=== PATIENT | female | born 1955 | race Caucasian/White ===

== ENCOUNTER → 2017-05-18 | Outpatient (CLI) | payer OTHER ==
--- NOTE | 2017-05-18 13:54 | Diagnostic Imaging Report ---
EXAMINATION: Pelvic ultrasound. INDICATION: Abnormal Pap, postmenopausal. COMPARISON: There are no prior studies available for comparison. FINDINGS: The uterus is not enlarged measuring 5.5 x 4.3 x 3.8 cm. However, within the endometrial lining of the uterus, there is a 0.8 x 0.7 x 1.0 cm hyperechoic avascular mass. There is also some fluid about this mass. The endometrium itself does not seem to be abnormally thickened. This hyperechoic lesion could represent a polyp. The possibility that this is neoplastic in nature cannot be entirely excluded. Hysteroscopy would be recommended for further study. There is also a septated predominantly cystic mass in the left adnexa measuring 4.5 x 4.2 x 2.7 cm. Within this cystic area, there is a small roughly 1 cm solid component with some vascularity. I am not certain if the solid component is a portion of the normal left ovary or if this could represent a neoplastic focus. Laparoscopy would be recommended for further evaluation. The right ovary could not be clearly identified. There is no solid pelvic mass visualized, and there is no significant free fluid collection. IMPRESSION: 1. There are two abnormal findings. There is a roughly 1 cm echogenic lesion within the endometrium of the uterus. There is also a septated cyst in the left adnexa with a possible solid component associated with the cyst. Additional evaluation of both these findings would be recommended. If there is no intervention at this time, then a short-term (4-6 week) followup pelvic ultrasound exam should be obtained. 2. There is no acute pelvic abnormality identified. Dictated by: Dictated on workstation # [id number]
== END ==
LOC: RAD 12:50
PROVIDERS: ATTEND Obstetrics & Gynecology
DX: N85.9 Noninflammatory disorder of uterus, unspecified (principal); N83.8 Other noninflammatory disorders of ovary, fallopian tube and broad ligament
CPT/HCPCS: 76830; 76856

== ENCOUNTER 2017-06-11 09:06 | Outpatient (CLI) | payer OTHER ==
[~2017-06-11] VITALS: Ht 162.6 cm; Wt 61.7 kg
[2017-06-11 09:15] VITALS: BP 137/87
[2017-06-11] MEDS ORDERED: CYCL1DRO OU (09:27)
[2017-06-11] MEDS ORDERED: MV-M1TAB38 PO (09:27)
[2017-06-11] MEDS ORDERED: TAMO20TA2 PO (09:27)
[2017-06-11] MEDS ORDERED: CALC-696 PO (09:27)
[2017-06-11] MEDS ORDERED: METO-272 PO (09:27)
[2017-06-11] MEDS ORDERED: ZOLP10TA5 PO (09:27)
[2017-06-11 09:48] LABS: BASOPHILS % (AUTO) 0 % (0-10); EOSINOPHILS # (AUTO) 0.1 10^3/uL (0.0-0.3); EOSINOPHILS % (AUTO) 2 % (0-10); LYMPHOCYTES # (AUTO) 1.4 X 10^3 (1.0-4.0); LYMPHOCYTES % (AUTO) 28 % (12-44); MEAN CORPUSCULAR HEMOGLOBIN 33 PG (25-34); MEAN CORPUSCULAR HGB CONC 33 G/DL (32-36); MEAN CORPUSCULAR VOLUME 98 FL (80-99); MEAN PLATELET VOLUME 9.1 FL (7.4-10.4); MONOCYTES # (AUTO) 0.4 X 10^3 (0.0-1.0); MONOCYTES % (AUTO) 8 % (0-12); NEUTROPHILS % (AUTO) 62 % (42-75); PLATELET COUNT 304 10^3/uL (130-400); RED BLOOD COUNT 4.36 10^6/uL (4.35-5.85); RED CELL DISTRIBUTION WIDTH 13.7 % (10.0-14.5); WHITE BLOOD COUNT 4.9 10^3/uL (4.3-11.0)
== END 2017-06-11 09:45 | disposition home or self-care (01) ==
LOC: PREOP 09:06
PROVIDERS: ATTEND Obstetrics & Gynecology
DX: Z01.812 Encounter for preprocedural laboratory examination (principal); R93.8 Abnormal findings on diagnostic imaging of other specified body structures; N87.9 Dysplasia of cervix uteri, unspecified
CPT/HCPCS: 36415; 85025; 86850; 86900; 86901; 87081

== ENCOUNTER 2017-06-25 06:05 | Day surgery (SDC) | payer OTHER ==
[~2017-06-25] VITALS: Ht 162.6 cm; Wt 61.7 kg
[~2017-06-25 06:05] MED LIST: CALC-696 PO; CYCL1DRO OU; METO-370 PO; MV-M1TAB38 PO; TAMO20TA2 PO; ZOLP10TA5 PO
[2017-06-25] MEDS ORDERED: fentaNYL INJECTION 100 MCG/2 ML AMP ONE ×2 (06:27→08:35)
[2017-06-25] MEDS ORDERED: ROCURONIUM 50 MG/5 ML (ZEMURON) VIAL IV ONE (06:27)
[2017-06-25] MEDS ORDERED: MIDAZOLAM 2 MG/2 ML (VERSED) VIAL ONE (06:27)
[2017-06-25] MEDS ORDERED: SEVOFLURANE (ULTANE) 15 ML INHAL SOLN ONE ×9 (06:27→09:17)
[2017-06-25] MEDS ORDERED: DEXAMETHASONE 10 MG/ML (DECADRON) 1 ML VIAL ONE (06:27)
[2017-06-25] MEDS ORDERED: proPOfol 200 MG/20 ML (DIPRIVAN) VIAL IV ONE (06:27)
[2017-06-25] MEDS ORDERED: LIDOCAINE PF 2% 5 ML (XYLOCAINE) VIAL ONE (06:27)
[2017-06-25] MEDS ORDERED: ONDANSETRON 4 MG/2 ML (SDV) Z0FRAN IV ONE (06:30)
[2017-06-25] MEDS ORDERED: FAMOTIDINE 20MG/2ML IV (PEPCID) IV ONE (06:30)
[2017-06-25] MEDS ORDERED: SCOPOLAMINE 1.5 MG (TRANSDERM-SCOP) PATCH TOP ONE (06:30)
[2017-06-25] MEDS: LACTATED RINGERS 1,000 ML IV PRN ×2 (06:54→07:56)
[2017-06-25] MEDS ORDERED: ceFAZolin 1 GM/NS 50 ML IVPB IV ONE ×2 (07:00)
[2017-06-25] MEDS ORDERED: metroNIDAZOLE 500 MG/100 ML IVPB (PRE-MIX) IV ONE (07:00)
--- NOTE | 2017-06-25 07:11 | Progress Note-Pre Operative ---
Pre-Operative Progress Note H&P Reviewed The H&P was reviewed, patient examined and no changes noted. Date Seen by Provider: Jun 25, 2017 Time Seen by Provider: 06:55 Date H&P Reviewed: Jun 25, 2017 Time H&P Reviewed: 07:00 Pre-Operative Diagnosis: LGSIL, Thickened endometrial stripe, Ovarian cyst DYLAN JANE DO Jun 25, 2017 7:11 am
[2017-06-25 07:19] VITALS: BP 149/90
[2017-06-25] MEDS ORDERED: LACTATED RINGERS 1,000 ML IV ONE (07:51)
[2017-06-25] MEDS ORDERED: GLYCOPYRROLATE 0.2 MG/ML (ROBINUL) 2 ML VIAL ONE ×2 (08:30→09:13)
[2017-06-25] MEDS ORDERED: morphine INJ 10 MG/ML 1ML (SYR OR VIAL) ONE (09:15)
[2017-06-25] MEDS ORDERED: NEOSTIGMINE (BLOXIVERZ ) 1 MG/1ML 10 ML VIAL ONE (09:16)
[2017-06-25] MEDS ORDERED: LACTATED RINGERS 1,000 ML IV SCH (09:29)
[2017-06-25] MEDS ORDERED: SIMETHICONE 80 MG (MYLICON) CHEW PO PRN (09:30)
[2017-06-25] MEDS ORDERED: ANTACID SUSP 30 ML UDC (MYLANTA) PO PRN (09:30)
[2017-06-25] MEDS ORDERED: DOCUSATE SODIUM 100 MG (COLACE) CAP PO PRN (09:30)
[2017-06-25] MEDS ORDERED: HYDROcodone/APAP 7.5 MG/325 MG (LORTAB, LORCET PLUS) TABLET PO PRN (09:30)
[2017-06-25] MEDS ORDERED: KETOROLAC 30 MG/ML VIAL IV PRN (09:30)
[2017-06-25] MEDS ORDERED: ONDANSETRON 4 MG/2 ML (SDV) Z0FRAN IV PRN (09:30)
[2017-06-25] MEDS ORDERED: ZOLPIDEM 5 MG (AMBIEN) TAB PO PRN (09:30)
[2017-06-25] MEDS ORDERED: BUPIVACAINE 0.25% 30 ML (SENSORCAINE) VIAL INJ ONE (09:30)
[2017-06-25] MEDS ORDERED: CHLORASEPTIC LOZENGE MM PRN (09:30)
[2017-06-25] MEDS ORDERED: IBUP-1773 PO (09:42)
[2017-06-25] MEDS ORDERED: HYDR-3816 PO (09:42)
[2017-06-25] MEDS ORDERED: SIME80TA16 PO (09:42)
[2017-06-25] MEDS ORDERED: DOCU100C37 PO (09:42)
--- NOTE | 2017-06-25 09:43 | Discharge Inst-Women's Service ---
Discharge Inst-Women's Serv Depart Medication/Instructions New, Converted or Re-Newed RX: RX on Chart Consults/Follow Up Additional Follow Up: Yes Orders/Referrals Dr. Dominguez in 7-10 days and in 8 weeks Activity Activity: Activity as Tolerated Driving Instructions: No Driving for 1 Week NO SMOKING: NO SMOKING Nothing Inside Vagina: No Douching, No [place], No Tampons Diet Discharge Diet: No Restrictions Symptoms to Report to : Bleeding Excessive, Pain Increased, Fever Over 101 Degrees F, Vaginal Bleeding Increase, Questions/Concerns For Any Problems or Questions: Contact Your Physician Skin/Wound Care Infection Signs and Symptoms: Increased Redness, Foul Odor of Wound, Increased Drainage, Skin Itchy or Has a Rash, Increased Swelling, Temperature Above 101 F Operative Area Clean and Dry: Keep Incision Clean/Dry Stitches/Penny/Dermabond: Dermabond, Care of Stitches Bathing Instructions: DYLAN Lopez DO Jun 25, 2017 09:43
[2017-06-25] MEDS ORDERED: HYDROmorphone (DILAUDID) 2 MG/ML VIAL IVP PRN (10:00)
[2017-06-25] MEDS ORDERED: ONDANSETRON 4 MG/2 ML (SDV) Z0FRAN IVP PRN (10:00)
[2017-06-25] MEDS ORDERED: KETOROLAC 30 MG/ML VIAL IVP ONE (10:00)
[2017-06-25] MEDS: morphine INJ 10 MG/ML 1ML (SYR OR VIAL) IVP PRN ×3 (10:03→10:14)
[2017-06-25 10:40] VITALS: BP 105/62
[2017-06-25 15:00] VITALS: BP 126/70
[2017-06-25] MEDS ORDERED: IBUPROFEN 600 MG (MOTRIN) TAB PO ONE (15:40)
--- NOTE | 2017-06-25 19:16 | OPERATIVE REPORT ---
DATE OF SERVICE: PREOPERATIVE DIAGNOSES: 1. A 62-year-old female with low grade squamous intraepithelial lesion on Pap cytology and inadequate colposcopy being able to be performed due to cervical stenosis. 2. Thickened endometrium. 3. Pelvic organ prolapse. 4. Fibroid uterus. 5. Left adnexal cyst. POSTOPERATIVE DIAGNOSES: 1. A 62-year-old female with low grade squamous intraepithelial lesion on Pap cytology and inadequate colposcopy being able to be performed due to cervical stenosis. 2. Thickened endometrium. 3. Pelvic organ prolapse. 4. Fibroid uterus. 5. Left adnexal cyst. 6. Extensive adhesions of the small bowel to the uterine fundus and attached to the left adnexal complex. PROCEDURE PERFORMED: 1. D and C with frozen section. 2. Robotic assisted total laparoscopic hysterectomy with bilateral salpingo-oophorectomy. 3. Extensive lysis of adhesions greater than 30 minutes. SURGEON: Dr. Harley Dominguez COAL CUTTER: NATHANAEL Barclay ANESTHESIA: General endotracheal anesthesia. ESTIMATED BLOOD LOSS: 50 mL. URINE OUTPUT: 75 mL. FLUIDS: 1700 mL Lactated Ringers solution. FINDINGS: Significantly scarred pelvis with cemented left adnexa to small bowel tissue as well as dense adhesions on the small bowel to the uterine fundus going from left to right. Grossly normal appearing right ovary and right fallopian tube. Unidentifiable left fallopian tube or ovary but cystic structures encountered in the dissection of the left adnexa. SPECIMENS: Endometrial curettings and then uterus, right fallopian tube and ovary and left adnexal structures. INDICATION: This 62-year-old female with a self consultation at my office for findings of low grade squamous intraepithelial lesions on cytology by her primary care provider. The patient also had a finding of a left adnexal cyst on ultrasound. The patient also reported significant degree of discomfort and pelvic pressure as well as change in urinary pattern due to pressure. She was told she had a significant degree of pelvic organ prolapse which was confirmed on examination in my office. Colposcopy was performed to evaluate the low grade Pap smear; however, it was inadequate due to inability to identify the transformation zone as well as inability to obtain an endometrial biopsy and endocervical sample due to cervical stenosis. I discussed with the patient in the office proceeding with D and C in a separate procedure; however, the patient due to pelvic organ prolapse and discomfort of the bladder, wished to go ahead and have a hysterectomy. Risks of this procedure were discussed with the patient in detail including risks of bleeding, infection, damage to surrounding structures including but not limited to bowel, bladder, ureter, kidneys, risk of bowel perforation, risk of ureter transection and the follow up procedures that would be involved therein. We also discussed about need for possible reoperation if any of these things should occur. We discussed the risk of bleeding and need for blood transfusion, risk from anesthesia. After all the patient's questions were answered, consent was obtained in the preoperative area with her present and the patient was taken to the operating room. DESCRIPTION OF PROCEDURE: Once in the operating room, general anesthesia was found to be adequate, placed in the dorsal lithotomy position, prepped and draped in a normal sterile fashion. A time-out was performed. Lala catheter was placed using sterile technique. I then start the patient procedure by examining the patient under anesthesia. The uterus is slightly retroverted, not enlarged, but it is fixed posteriorly. There is some fullness in the left adnexa. The right adnexa I cannot appreciate on bimanual examination. I then inserted a weighted speculum into the patient's vagina. A right angle retractor was grabbed with a long Allis clamp. I am able to sound the uterine cavity gently by pushing this through the stenotic cervix and finding the uterine cavity depth to be approximately 7 cm. I then gently dilated the cervix using Natacha dilators to maximum dilatation of approximately 6 mm at which point I collected endometrial sample using a small endometrial curet. This was sent for frozen section. While awaiting frozen section results due to my low suspicion for malignancy, I go ahead and place a Latasha uterine manipulator using a 6 cm tip and a 3.5 colpotomy ring. I placed this within the uterine cavity, deployed the balloon advanced the colpotomy ring around the vaginal fornix. I was then contacted by pathology and Dr. Kendall who reveals to me stromal tissue and benign findings overall, benign endometrial tissue but just a scan amount. Due to no findings of malignancy I decide to proceed with the procedure as discussed in the office. I performed a change of globes and took my attention to the abdomen where infraumbilically I infiltrated this area using 0.25% Marcaine and make an 8 mm incisions. I directed Veress needle through this incision until intraperitoneal placement was confirmed using saline drop test. I then proceeded with insufflation using CO2 gas and opened to a pressure 3 mmHg as noted. I proceeded to a maximum pressure of 15 mmHg at which point I removed the Veress needle, introduced an 8 mm blunt DaVinci trocar. Once this was in place, I am able to confirm intraperitoneal placement using the DaVinci laparoscope. I had the patient placed in steep Trendelenburg and I am able to visualize all the findings described in my findings above. I then placed lateral trocars, these are both 8 cm lateral to my infraumbilical trocar. The skin was infiltrated using 0.25% Marcaine and an 8 mm incision made with a knife and these trocars directed to the incision they are visualized in the peritoneal cavity. Once they are both in place, I bring in the Pure Focus[employer] robot and docked it in appropriate fashion using the monopolar angie in the right hand and Pure Focusinci vessel sealer in the left hand. I begin by taking down the adhesions. I do this using both blunt and sharp dissection. I try to avoid using any monopolar cautery during the dissection of the bowel and due to my concerns of bowel injury from monopolar cautery. This does cause a little bit more oozing during the dissection but overall, it goes very well. It takes me approximately 30 minutes to get the bowel off of the uterine fundus and to separate out the left adnexa. There is definitely some ovarian stromal tissue that is adhesed to the pelvic sidewall that I am unable to get to. However, due to my low suspicion for malignancy, I leave the tissue behind rather than attempt to gather it and risk bowel perforation or ureteral injury. Once I have this freed up, I then grasp the left uteroovarian ligament, bipolar cauterized it and transected it using the vessel sealer. I then grasped the round ligament by polar cauterizing it, transecting it using the vessel sealer. There was a remnant of the fallopian tube that does not have to be transected as it is already taken down with my dissection. I then am able to grab the entire broad ligament. I bipolar cauterized it, transected it using the vessel sealer down to the level of the lower uterine segment. I the anterior lip posteriorly so it is with the broad ligament exposing the uterine vessels laterally. The anterior leaf of the dissection was taken around the anterior vaginal fornix, posterior leaflet taken around to the posterior vaginal fornix. I then bipolar cauterized the uterine vessels laterally and took my attention to the right side where I am able to isolate the infundibulopelvic ligament, bipolar cauterized it and transected it using a vessel sealer. I then grasped the round ligament, bipolar cauterized this and transected it using the vessel sealer. I then grasped the entire broad ligament, bipolar cauterized and transected using the vessel sealer down to the level of the lower uterine segment at which point I the anterior posterior leaflets out, anterior leaflet taken around to the anterior vaginal fornix to meet the other side dissection in a similar fashion. Posterior leaflet was taken around to do the same. This exposes the lateral uterine vessels which I bipolar cauterized and transected using the vessel sealer. I then performed a colpotomy at the 12 o'clock position using the monopolar angie and take this circumferentially around the vaginal fornix, amputated the cervix away from the vaginal fornix. The uterus and right fallopian tube and ovary were then removed to the vagina. The tissue from the cystic structures I encounter on my left adnexal dissection are then also sent with this specimen and taken out vaginally. I then perform a change of instruments on the [employer] robot using my long narrow graspers and my parth suture cut needle lead driver. I place in the lateral vaginal apices 2-0 Vicryl suture in a [id number] fashion, colposuspending them to the uterosacral ligaments. I then closed the remainder of the vaginal cuff using 2-0 V-Loc in a running fashion after which there was no active bleeding there from any of my dissection planes. I copiously irrigated the pelvis using normal saline. Once again, no active bleeding is noted. I then undocked the Pure [employer]inci robot and removed all of the instruments and needles. Once this was done I proceed with the remainder of the case laparoscopically. I copiously irrigated the pelvis once again using normal saline. Once again, there is no active bleeding noted from any of my dissection planes. I then placed FloSeal hemostatic agent over all my planes of dissection for excellent hemostasis and ensured hemostasis postoperatively. I then had the patient taken out of steep Trendelenburg and evaluated the upper abdominal anatomy briefly which appears grossly normal. I then removed the lateral trocars under direct visualization of the laparoscope. The infraumbilical trocar was left in place to introduce 10 mL 0.25% Marcaine for postoperative pain management. I then released all insufflation to this trocar site as well and removed it. I then closed the skin incisions using 4-0 Monocryl in an interrupted subcuticular stitches, Dermabond was applied to the incision and band-aids were placed over these. The patient tolerated the procedure well and sent to recovery in stable condition. Lap and sponge counts correct at the end of the procedure. Instrument count was correct as well. One gram of Ancef and 500 mg Flagyl was given preoperatively for infection prophylaxis. Lala catheter was left in place. Job ID: [id number] DocumentID: [id number] Dictated Date: 06/25/2017 10:01:07 [employer] Date: 06/25/2017 19:15:26 Dictated By: HARLEY DOMINGUEZ DO MTDJennifer
[2017-06-26] MEDS ORDERED: IBUPROFEN 600 MG (MOTRIN) TAB PO PRN (02:15)
== END 2017-06-25 17:50 | disposition home or self-care (01) ==
LOC: SDC 06:05 → WS 10:40 → SDC 17:50
PROVIDERS: ATTEND Obstetrics & Gynecology
DX: N80.0 Endometriosis of uterus (principal); D25.1 Intramural leiomyoma of uterus; D25.2 Subserosal leiomyoma of uterus; N88.8 Other specified noninflammatory disorders of cervix uteri; N83.8 Other noninflammatory disorders of ovary, fallopian tube and broad ligament; N73.6 Female pelvic peritoneal adhesions (postinfective); R87.612 Low grade squamous intraepithelial lesion on cytologic smear of cervix (LGSIL); R93.8 Abnormal findings on diagnostic imaging of other specified body structures; I10 Essential (primary) hypertension; K21.9 Gastro-esophageal reflux disease without esophagitis; M19.91 Primary osteoarthritis, unspecified site; C50.919 Malignant neoplasm of unspecified site of unspecified female breast; Z79.899 Other long term (current) drug therapy; Z90.13 Acquired absence of bilateral breasts and nipples; Z79.810 Long term (current) use of selective estrogen receptor modulators (SERMs)
CPT/HCPCS: 88305; 88307; 88331; 94664